=== PATIENT | male | born 1980 | race Caucasian/White ===

== ENCOUNTER 2025-05-11 18:05 | Emergency (ER) | payer OTHER ==
[~2025-05-11] VITALS: Ht 188 cm; Wt 86.2 kg
[2025-05-11 18:05] VITALS: BP 142/84; O2SAT 98
== END 2025-05-11 18:35 | disposition left against medical advice (07) ==
LOC: ER 18:05
DX: R07.89 Other chest pain (principal); R06.02 Shortness of breath; I51.9 Heart disease, unspecified
CPT/HCPCS: A4606; A4663